=== PATIENT | male | born 1980 | race American Indian/Alaskan Native ===

== ENCOUNTER 2019-01-03 04:18 | Emergency (ER) | payer MEDICAID ==
[2019-01-03] MEDS ORDERED: Sodium Chloride 0.9% 1,000 ML IV STA (04:40)
[2019-01-03] MEDS ORDERED: Morphine 4 MG/ML VIAL IVP ONE (04:44)
--- NOTE | 2019-01-03 05:10 | ED PDOC ---
HPI: Back Time Seen by Provider: 01/03/19 04:28 Chief Complaint (Nursing): Back Pain Chief Complaint (Provider): Back Pain History Per: Patient History/Exam Limitations: no limitations Onset/Duration Of Symptoms: Hrs (x7) Additional Complaint(s): 38 y/o male presents to the ED complaining of back pain, onset 21:00. Patient reports he has sickle cell trait and has developed sickle cell crises. Patient is not under the care of any foil stamp operator. He states he took Valium without improvement. Denies fever, chills, urinary symptoms, nausea vomiting. Past Medical History Reviewed: Historical Data, Nursing Documentation, Vital Signs Vital Signs: Last Vital Signs Temp 98.2 F 01/03/19 04:30 Pulse 86 01/03/19 04:30 Resp 20 01/03/19 04:30 BP 140/83 01/03/19 04:30 Pulse Ox 100 01/03/19 04:30 - Medical History PMH: Sickle Cell Disease (Trait) - Surgical History Surgical History: No Surg Hx - Family History Family History: States: Unknown Family Hx - Social History Current smoker - smoking cessation education provided: No Alcohol: None Drugs: Denies - Home Medications Home Medications: Ambulatory Orders Medication Instructions Recorded Cyclobenzaprine [Cyclobenzaprine 10 mg PO TID PRN #15 tab 01/03/19 HCl] Lidocaine 5% [Lidoderm] 1 ea TD QAM #10 patch 01/03/19 - Allergies Allergies/Adverse Reactions: Allergies Allergy/AdvReac Type Severity Reaction Status Date / Time No Known Allergies Allergy Verified 01/03/19 04:31 Review of Systems ROS Statement: Except As Marked, All Systems Reviewed And Found Negative Constitutional: Negative for: Fever, Chills Gastrointestinal: Negative for: Nausea, Vomiting Genitourinary Male: Negative for: Dysuria, Frequency, Incontinence Musculoskeletal: Positive for: Back Pain Physical Exam - Reviewed Nursing Documentation Reviewed: Yes Vital Signs Reviewed: Yes - Physical Exam Appears: Positive for: Well, Non-toxic, No Acute Distress Head Exam: Positive for: ATRAUMATIC, NORMAL INSPECTION, NORMOCEPHALIC Skin: Positive for: Normal Color, Warm, DRY Eye Exam: Positive for: EOMI, Normal appearance, PERRL ENT: Positive for: Normal ENT Inspection Neck: Positive for: Normal, Painless ROM Cardiovascular/Chest: Positive for: Regular Rate, Rhythm. Negative for: Murmur Respiratory: Positive for: Normal Breath Sounds. Negative for: Respiratory Distress Gastrointestinal/Abdominal: Positive for: Normal Exam, Soft. Negative for: Tenderness Back: Positive for: Normal Inspection Extremity: Positive for: Normal ROM. Negative for: Pedal Edema, Deformity Neurologic/Psych: Positive for: Alert, Oriented. Negative for: Motor/Sensory Deficits - Laboratory Results Result Diagrams: 01/03/19 05:09 01/03/19 05:09 - ECG O2 Sat by Pulse Oximetry: 100 (RA) Pulse Ox Interpretation: Normal Medical Decision Making Medical Decision Making: Time: 04:40 Initial Impression: 38 y/o with back pain in setting of sickle cell trait. Likely drug seeking behavior. Initial Plan: * Labs * IV Fluids * Morphine 06:21 Labs reviewed show no clinically significant abnormalities. Patient reports improvement of symptoms at this time and is stable for discharge. Diagnosis is back pain in setting of sickle cell trait. Provider reinforced need to follow up with foil stamp operator. Scribe Attestation: Documented by Xiang Oviedo acting as a scribe for Maruy Morton MD. Provider Scribe Attestation: All medical record entries made by the Scribe were at my direction and personally dictated by me. I have reviewed the chart and agree that the record accurately reflects my personal performance of the history, physical exam, medical decision making, and the department course for this patient. I have also personally directed, reviewed, and agree with the discharge instructions and disposition. Disposition - Clinical Impression Clinical Impression: Sickle cell trait, Back pain - Disposition Referrals: Susana Flores MD [Staff Provider] - Disposition: Routine/Home Disposition Time: 06:21 Condition: STABLE Additional Instructions: DAISY PICHARDO, thank you for letting us take care of you today. Your provider was Maury Morton MD and you were treated for BACK PAIN. The emergency medical care you received today was directed at your acute symptoms. If you were prescribed any medication, please fill it and take as directed. It may take several days for your symptoms to resolve. Return to the Emergency Department if your symptoms worsen, do not improve, or if you have any other problems. Please contact your doctor or call one of the physicians/clinics you have been referred to that are listed on the Patient Visit Information form that is included in your discharge packet. Bring any paperwork you were given at discharge with you along with any medications you are taking to your follow up v isit. Our treatment cannot replace ongoing medical care by a primary care provider outside of the emergency department. Thank you for allowing the [facility] team to be part of your care today. If you had an X-Ray or CT scan: A Radiologist will review the ED reading if any change in treatment is needed we will contact you. If you had a blood, urine, or wound culture: It will take several days for the results, if any change in treatment is needed we will contact you. If you had an STI test: It will take 48 hours for the results. Please call after 1 week if you have not heard back. Prescriptions: Cyclobenzaprine [Cyclobenzaprine HCl] 10 mg PO TID PRN #15 tab PRN Reason: back/muscle pain Lidocaine 5% [Lidoderm] 1 ea TD QAM #10 patch Instructions: Low Back Pain in Adults, Sickle Cell Trait Forms: [employer] (Belgian)
[2019-01-03 05:29] LABS: BASO % 0.5 % (0.0-2.0); EOS # 0.1 K/uL (0.0-0.7); EOS % 1.8 % (0.0-4.0); HEMOGLOBIN 11.5 g/dL (12.0-18.0); LYMPH # 1.2 K/uL (1.0-4.3); LYMPH % 15.2 % (20.0-40.0); MEAN CELL VOLUME 75.7 fl (80.0-94.0); MEAN CORPUSCULAR HEMOGLOBIN 24.8 pg (27.0-31.0); MEAN CORPUSCULAR HGB CONC 32.8 g/dL (33.0-37.0); MEAN PLATELET VOLUME 10.1 fl (7.2-11.7); MONO # 0.6 K/uL (0.0-0.8); MONO % 6.7 % (0.0-10.0); NEUT # 6.2 K/uL (1.8-7.0); NEUT % 75.8 % (50.0-75.0); NRBC % 0.4 % (0.0-0.0); RBC 4.63 Mil/uL (4.40-5.90); RED CELL DISTRIBUTION WIDTH 16.1 % (11.5-14.5); WHITE BLOOD COUNT 8.2 K/uL (4.8-10.8)
[2019-01-03 05:32] LABS: ALB/GLOB RATIO 1.3 (1.0-2.1); ALBUMIN 4.6 g/dL (3.5-5.0); ALT/SGPT 31 U/L (21-72); AST/SGOT 41 U/L (17-59); BLOOD UREA NITROGEN 12 mg/dl (9-20); CALCIUM 9.5 mg/dL (8.4-10.2); GFR NON-AFRICAN AMERICAN > 60
[2019-01-03 05:50] LABS: PROTHROMBIN TIME 11.5 Seconds (9.8-13.1)
[2019-01-03 05:53] LABS: PARTIAL THROMBOPLASTIN TIME 35.2 Seconds (25.6-37.1)
[2019-01-03 06:37] VITALS: BP 136/70; PULSE 79; RESP 22; TEMP 98.4; O2SAT 99
== END 2019-01-03 06:30 | disposition home or self-care (01) ==
LOC: H.ER 04:18
DX: M54.9 Dorsalgia, unspecified (principal); D57.3 Sickle-cell trait
CPT/HCPCS: 80053; 85025; 85044; 85610; 85730; 96374; 99283; J1885; J2270; J7030